=== PATIENT | male | born 1990 | race Caucasian/White ===

== ENCOUNTER 2017-09-30 23:21 | Emergency (ER) | payer SELFPAY ==
[~2017-09-30] VITALS: Ht 172.7 cm; Wt 64.4 kg
--- NOTE | 2017-10-01 | NUR ---
"I HAVE THIS BREATHING PROBLEM" X2 MOS WITH SCRATCH ON HAND. NO SEVERE SOB NOTED OR PAIN. A/OX4 VSS NAD ADMITTED TO BEING DAILY [employer]IJ[employer] USER BUT DOES NOT REMEMBER IF HE HAS DONE IT TODAY. WILL CONTINUE TO MONITOR FOR ANY CHANGES DURING THE SHIFT.
[2017-10-01] MEDS ORDERED: predniSONE 20 MG TABLET ONE (00:13)
[2017-10-01] MEDS: predniSONE 20 MG TABLET PO ONE (00:13)
--- NOTE | 2017-10-01 00:15 | NUR ---
RT ON WAY FOR BREATHING TX
[2017-10-01] MEDS: IPRATROPIUM NEB FS 0.5 MG/2.5 ML AMPUL.NEB NEB ONE (00:23)
[2017-10-01] MEDS: ALBUTEROL FS 2.5 MG/3 ML VIAL.NEB NEB ONE (00:23)
[2017-10-01] MEDS ORDERED: ALBUTEROL FS 2.5 MG/3 ML VIAL.NEB ONE (00:24)
[2017-10-01] MEDS ORDERED: IPRATROPIUM NEB FS 0.5 MG/2.5 ML AMPUL.NEB ONE (00:24)
[2017-10-01 00:55] VITALS: BP 145/93
== END 2017-10-01 00:56 | disposition home or self-care (01) ==
LOC: ER 23:24
DX: J45.901 Unspecified asthma with (acute) exacerbation (principal); F17.210 Nicotine dependence, cigarettes, uncomplicated; Z88.6 Allergy status to analgesic agent
CPT/HCPCS: A4606; Z7610